=== PATIENT | female | born 1985 | race Caucasian/White ===

== ENCOUNTER 2017-06-23 16:46 | Emergency (ER) | payer OTHER ==
[~2017-06-23] VITALS: Ht 165.1 cm; Wt 53.9 kg
[~2017-06-23 16:46] MED LIST: ADVAIR 250/501 DISK IH; ADVAIR 500/501 DISK IH; ALBUTEROL S5 MG/1 ML IH; IBUPROFEN800 MG PO; IRON325 MG PO; MOTRIN600 MG PO; PERCOCET 5/31 TABLET PO; SINGULAIR10 MG PO
[2017-06-23 17:27] LABS: MCHC 33.5 G/DL (30.0-36.0); MCV 86.5 FL (83-99); MEAN PLAT.VOLUME 9.8 uM^3 (9.5-12.4); PLATELET COUNT 232 K/uL (156-360); RBC DIS.WIDTH-CV 13.2 % (11.8-14.6); RBC DIS.WIDTH-SD 42.1 % (39-53); RED BLOOD COUNT 3.93 M/uL (3.80-5.20); WHITE BLOOD COUNT 7.7 K/uL (4.1-10.2)
[2017-06-23 17:37] LABS: CHLORIDE 111 mEq/L (99-109); POTASSIUM 3.3 mEq/L (3.7-5.4); SODIUM 142 mEq/L (136-147)
[2017-06-23 17:38] LABS: GLUCOSE 88 mg/dL (70-99)
[2017-06-23 17:39] LABS: D-DIMER ELISA < 150.00 ng/mLDDU (<230)
[2017-06-23 17:40] LABS: ANION GAP 9 MEQ/L (2-14)
[2017-06-23 17:42] LABS: GFR ESTIMATE (CALCULATED) > 59 mL/min/
[2017-06-23 17:43] LABS: UREA NITROGEN (BUN) 17 mg/dL (9-23)
[2017-06-23 17:50] LABS: QUANTITATIVE HCG < 4.0 MIU/ML; TROP-I INTERPRETATION NEGATIVE; TROPONIN-I < 0.01 ng/mL (0.0-0.30)
[2017-06-23 19:24] LABS: INTERNAL CONTROL VALID? YES
[2017-06-23 20:00] VITALS: BP 108/80
== END 2017-06-23 20:01 | disposition home or self-care (01) ==
LOC: EME 16:46
PROVIDERS: Emergency Medicine
DX: T67.5XXA Heat exhaustion, unspecified, initial encounter (principal); R55 Syncope and collapse; J45.909 Unspecified asthma, uncomplicated; Z87.891 Personal history of nicotine dependence
CPT/HCPCS: 71010; 80048; 84484; 84702; 84703; 85027; 85379; 93005; 99281; 99285

== ENCOUNTER 2018-05-04 14:53 | Emergency (ER) | payer OTHER ==
[~2018-05-04] VITALS: Ht 165.1 cm; Wt 61.6 kg
[2018-05-04] MEDS ORDERED: PREDNISONE50 MG PO (18:00)
[2018-05-04 18:25] VITALS: BP 105/71
== END 2018-05-04 18:26 | disposition home or self-care (01) ==
LOC: EME 14:53
DX: J45.901 Unspecified asthma with (acute) exacerbation (principal); F32.9 Major depressive disorder, single episode, unspecified; F41.9 Anxiety disorder, unspecified; F90.9 Attention-deficit hyperactivity disorder, unspecified type; Z87.891 Personal history of nicotine dependence
CPT/HCPCS: 99281; 99284; J7512

== ENCOUNTER 2018-06-20 09:16 | Emergency (ER) | payer OTHER ==
[~2018-06-20] VITALS: Ht 167.6 cm; Wt 60.7 kg
[~2018-06-20 09:16] MED LIST changes: +PREDNISONE50 MG PO
[2018-06-20 09:54] LABS: HEMATOCRIT 35.3 % (36.0-46.0); HEMOGLOBIN 11.9 G/DL (11.9-15.5); MCH 29.8 PG (29.0-34.0); MCHC 33.7 G/DL (30.0-36.0); MCV 88.5 FL (83-99); PLATELET COUNT 299 K/uL (156-360); RBC DIS.WIDTH-CV 12.8 % (11.8-14.6); RBC DIS.WIDTH-SD 42.1 % (39-53); RED BLOOD COUNT 3.99 M/uL (3.80-5.20); WHITE BLOOD COUNT 9.2 K/uL (4.1-10.2)
[2018-06-20 10:02] LABS: D-DIMER ELISA < 150.00 ng/mLDDU (<230)
[2018-06-20 10:03] LABS: CHLORIDE 108 mEq/L (99-109); POTASSIUM 3.6 mEq/L (3.7-5.4); SODIUM 139 mEq/L (136-147)
[2018-06-20 10:05] LABS: GLUCOSE 93 mg/dL (70-99)
[2018-06-20 10:09] LABS: CREATININE 0.9 mg/dL (0.6-1.3); GFR ESTIMATE (CALCULATED) > 59 mL/min/; UREA NITROGEN (BUN) 21 mg/dL (9-23)
[2018-06-20 10:17] LABS: QUANTITATIVE HCG < 4.0 MIU/ML
[2018-06-20 13:05] LABS: TROP-I INTERPRETATION NEGATIVE; TROPONIN-I 0.01 ng/mL (0.0-0.30)
[2018-06-20 13:16] LABS: TROP-I INTERPRETATION NEGATIVE; TROPONIN-I < 0.01 ng/mL (0.0-0.30)
[2018-06-20 14:10] VITALS: BP 97/61
== END 2018-06-20 14:10 | disposition home or self-care (01) ==
LOC: EME 09:16
PROVIDERS: Emergency Medicine
DX: R07.9 Chest pain, unspecified (principal); F32.9 Major depressive disorder, single episode, unspecified; F41.9 Anxiety disorder, unspecified; J45.909 Unspecified asthma, uncomplicated; F90.9 Attention-deficit hyperactivity disorder, unspecified type; Z87.891 Personal history of nicotine dependence
CPT/HCPCS: 71046; 80048; 84484; 84702; 85027; 85379; 93005; 99281; 99285